=== PATIENT | female | born 1975 | race Caucasian/White ===

== ENCOUNTER 2016-11-29 12:25 | Emergency (ER) | payer BC ==
[2017-01-12] MEDS ORDERED: WELLSR150 PO (15:42)
[2017-01-12] MEDS ORDERED: LEXAPRO20 PO (15:42)
== END 2016-11-29 13:00 | disposition home or self-care (01) ==
LOC: ER 12:25
DX: J35.1 Hypertrophy of tonsils (principal); F41.9 Anxiety disorder, unspecified
CPT/HCPCS: 96372; 99283

== ENCOUNTER 2017-01-18 12:10 | Observation (INO) | payer BC ==
[2017-01-12 10:21] LABS: BASOPHILS 0.2 %; BASOPHILS ABSOLUTE 0.02 10/3/uL (0.0-0.16); EOSINOPHILS 1.2 %; HEMOGLOBIN 12.2 g/dL (12.0-16.0); IMMATURE GRANULOCYTES 0.2 %; IMMATURE GRANULOCYTES ABSOLUTE 0.02 10/3/uL (0.0-0.11); LYMPHOCYTES ABSOLUTE 1.61 10/3/uL (0.67-4.30); MEAN CORPUS HGB CONC 32.1 g/dL (32.0-36.0); MEAN CORPUSCULAR HEMOGLOB 26.5 pg (26.0-34.0); MEAN CORPUSCULAR VOLUME 82.4 fL (80-100); MEAN PLATELET VOLUME 9.7 fL (9.2-13.0); MONOCYTES 4.7 %; NEUTROPHILS 74.7 %; NEUTROPHILS ABSOLUTE 6.31 10/3/uL (2.02-8.40); PLATELET COUNT 326 10/3/uL (150-400); RED CELL COUNT 4.61 10/6/uL (4.0-5.6); WHITE BLOOD CELLS 8.5 10/3/uL (4.5-10.5)
[2017-01-12 10:23] LABS: MANUAL DIFF NO %
[2017-01-12 10:35] LABS: BUN (BLOOD UREA NITROGEN) 11 MG/DL (6-23); CALCIUM, SERUM 8.8 MG/DL (8.5-10.4); CHLORIDE, SERUM 107 MMOL/L (96-112); CO2 (CARBON DIOXIDE) 26 MMOL/L (24-34); CREATININE 0.71 MG/DL (0.55-1.02); GFR AFRICAN AMERICAN 123 ML/MIN (>=60); GFR NON AFRICAN AMERICAN 107 ML/MIN (>=60); GLUCOSE, SERUM 99 MG/DL (60-99); POTASSIUM, SERUM 4.2 MMOL/L (3.5-5.3); SODIUM, SERUM 140 MMOL/L (135-148)
--- NOTE | ~2017-01-18 | OP ---
Record Of Operation [address] [place]. [address] NAME: MINERVA ROBLES : 77 STATUS : ADM Catie PAT#: [id number] AGE: 41 ADM/REG DATE : 01/18/17 MR#: [id number] REPORT SERV DATE: 01/18/17 DICTATED BY: DINESH DOMINGUEZ DATE: 01/18/17 REPORT STATUS : Draft TRANSCRIBED BY: MODTaz DATE: 01/18/17 DATE OF PROCEDURE: 01/18/2017 PREOPERATIVE DIAGNOSIS: Adenotonsillar hypertrophy with obstructive sleep apnea syndrome. POSTOPERATIVE DIAGNOSIS: Adenotonsillar hypertrophy with obstructive sleep apnea syndrome. PROCEDURE: Tonsillectomy and adenoidectomy with uvulopalatopharyngoplasty. ANESTHESIA: General endotracheal. ESTIMATED BLOOD LOSS: 25 mL. INTRAOPERATIVE FLUIDS: 750 mL of crystalloid. FINDINGS: Three to 4+ tonsils, bilaterally, with moderate adenoid hypertrophy, and moderate elongation redundancy of the soft palate. OPERATIVE PROCEDURE: The patient was identified in the holding room, transported to the operating room. In the operating room, the patient was placed in the operating room table in supine position. Following induction of anesthesia, the patient was intubated without difficulty. The table was turned to 90 degrees for the operative procedure. A Hugh-Dat retractor was placed for exposure of the oropharynx. A red rubber catheter was fed through the right naris and withdrawn through the mouth for elevation of the soft palate. The tonsillar fossae were injected with 0.25% Marcaine, bilaterally. Beginning on the right side, the right tonsil was grasped with a curved Allis clamp and retracted medially for exposure of the anterior tonsillar pillar. A plane of dissection was established between the capsule of tonsil and muscular wall of the tonsillar fossa. This plane of dissection was carried from the superior to inferior pole. At the inferior pole, the specimen was transected and the tonsil was removed. A tonsil pack dipped in Adrenalin was placed into the right tonsillar fossa. The left tonsil was then removed in a similar fashion. The packing was then removed from the tonsillar fossa for examination of the nasopharynx. Examination of the nasopharynx did reveal moderate adenoid hypertrophy. The adenoid tissue was removed with the use of the suction cautery. A ridge of adenoid tissue was retained inferiorly at [place] ridge. The nasopharynx was irrigated and hemostasis was confirmed. The red rubber catheter was removed. The point of contact between the posterior oropharyngeal wall and soft palate was then identified. An incision was created distal to this point, resulting in, primarily, resection of the uvula. The muscularis uvula was debulked. Hemostasis was achieved with the use of the unipolar cautery. A tenting sutures were placed in the lateral aspect of the soft palate, bilaterally. The mucosa along the posterior aspect of the soft palate was then approximated with interrupted 3-0 chromic suture. Similar suture material was used to approximate the anterior and posterior tonsillar pillars, bilaterally. At the end of the operative procedure there was no residual bleeding. The Hugh-Dat retractor was removed. The patient was awakened from anesthesia, extubated in the operating room, transported to recovery room in good condition. The patient tolerated the procedure well. There were no apparent complications. Specimens Record Of Operation [address] [address] NAME: MINERVA ROBLES : 77 STATUS : ADM Catie PAT#: [id number] AGE: 41 ADM/REG DATE : 01/18/17 MR#: [id number] REPORT SERV DATE: 01/18/17 DICTATED BY: DINESH DOMINGUEZ DATE: 01/18/17 REPORT STATUS : Draft TRANSCRIBED BY: ALVIN DATE: 01/18/17 included bilateral tonsils and uvula. TF/ALVIN Dinesh Dominguez M.D. / [id number] CC: Jesus Ryan M.D.
[~2017-01-18 12:10] MED LIST: LEXAPRO20 PO; WELLSR150 PO
[2017-01-19] MEDS ORDERED: HYCET 7.5 MG-3473 ML (20:11)
[2017-01-19] MEDS ORDERED: TETRACAINE OT (20:14)
[2017-01-19] MEDS ORDERED: VISCOUS LIDOCAINE PO (20:15)
== END 2017-01-19 21:20 | disposition home or self-care (01) ==
LOC: SDC 12:10 → SDC/OF 16:10 → 4SO 20:22
PROVIDERS: Otolaryngology
PROC: 0CBQ0ZZ Excision of Adenoids, Open Approach (ICD-10-PCS; 2017-01-18)
PROC: 0CBP0ZZ Excision of Tonsils, Open Approach (ICD-10-PCS; principal; 2017-01-18 13:15)
PROC: 0CBPXZZ Excision of Tonsils, External Approach (ICD-10-PCS; 2017-01-18 13:15)
DX: J35.1 Hypertrophy of tonsils (principal); G43.909 Migraine, unspecified, not intractable, without status migrainosus; F41.9 Anxiety disorder, unspecified; G47.33 Obstructive sleep apnea (adult) (pediatric); K21.9 Gastro-esophageal reflux disease without esophagitis; Z90.49 Acquired absence of other specified parts of digestive tract; Z77.22 Contact with and (suspected) exposure to environmental tobacco smoke (acute) (chronic); Z79.899 Other long term (current) drug therapy; Z98.890 Other specified postprocedural states
CPT/HCPCS: 80048; 84703; 85025; 88302; 88304; 96374; 96375; A9270-GY; G0378; J0690; J1170; J2250; J2270; J2405; J2550; J2710; J3010